=== PATIENT | female | born 1965 | race African-American/Black ===

== ENCOUNTER 2017-08-30 15:15 | Emergency (ER) | payer MEDICAID, MEDICARE, OTHER ==
[2017-08-30] MEDS ORDERED: Levofloxacin 750mg/150mL 750 MG/150 ML BAG IV ONE ×2 (17:04→17:42)
--- NOTE | 2017-08-30 17:40 | ED Physician Chart ---
ED Chief Complaint/HPI - Patient Information Date Seen:: 08/30/17 Time Seen:: 17:33 Chief Complaint:: PAIN AND SWELLING, REDNESS BOTH LEGS History of Present Illness:: THIS 52-YEAR-OLD FEMALE WAS BROUG[facility] [place] [facility]. SHE HAD HER SHOES STOLEN AND SHE HAS BEEN WALING ABOUT BAREFOOT FOR A COUPLE OF WEEKS. SHE IS NOW COMPLAINING OF SWELLING , REDNESS AND PAIN IN BOTH LEGS AND FEET. SHE IS UN COOPERATIVE IN PROVIDING ANY ADDITIONAL INFORMATION AND RESIST NURSING STAFF WHEN OBTAINING BLOOD. SHE IS UNKEPTED, BELLIGERENT AND HAS HER SOCKS GROWING INTO THE SKIN COVERING OVER HER TOES BOTH FEET. Allergies:: Allergies Allergy/AdvReac Type Severity Reaction Status Date / Time Penicillins Allergy Mild Verified 08/30/17 15:51 morphine Allergy Verified 08/30/17 15:52 Vitals:: Vital Signs - 8 hr 08/30/17 15:52 Temp 97.3 F HR 98 RR 17 BP 122/74 O2 Sat % 98 Historian:: Patient Family MD/PCP:: PT'S STORY NOT CONSISTENT OVER TIME. ED Review of Systems - Review of Systems General/Constitutional: Other ( PATIENT REFUSES TO COOPERATE WITH ROS.) Family Medical History - Family Member Mother History Unknown: Yes ED Physical Exam - Physical Examination General/Constitutional: Awake, Alert, Ambulatory Head: Atraumatic Eyes: Lids, conjuctiva normal, PERRL, EOMI Other Skin comments:: THERE IS A SYMMETRICAL DISCOLORATION OF THE SKIN IN BOTH LOWER EXTREMITIES WITH DUSKY REDNESS, WARMTH AND MILD EDEMA. THERE WAS TENDERNESS IN THE ANTERIOR TIBIAL RETION. THERE WAS POOR CALILLARY REFILL IN THE TOES. THERE WAS ALSO MILD ECONOMIC DISCOLORATION BETWEEN THE TOES ON THE RIGHT FOOT. THERE WERE NO DEFORMITIES OF ANY TOES. THE FINDINGS WERE CONSISTENT WITH STASIS DERMATITIS OR WITH CELLULITIS. ENMT: External ears, nose nl Other ENMT comments:: UNCOOPERATIVE WITH EXAMINATION. Neck: Nontender, No JVD, No mass Respiratory: Nl effort/Exclusion, Clear to Auscultation, No Wheeze/Rhonchi/Rales Cardio Vascular: No murmur, gallop, rubs, NL S1 S2 Other Cardio Vascular comments:: GOOD DORSALIS PEDIS PULSES IN BOTH LOWER EXTREMITIES. GI: No tenderness/rebounding/guarding, No hernia, Nondistended, No mass/bruits : No CVA tenderness Extremities: normal strength in all extremities Other Extremities comments:: MILD TENDERNESS TO PALPATION. IRRIGULAR ULCERATION ON PLANTAR SURFACES OF BOTH FEET. NO INACT BLISTERS. GROUND IN DIRT DISGTAL FEET BOTH FEET. Other Neuro/Psych comments:: ALERT AND UNCOOPERAIVE. MOVES ALL 4 EXTREMITIES WITH NORMAL STRENGTH. ABLE TO AMBULATE TO REST ROOM WITHOUT ASSISTANCE. Misc: Normal back ED Labs/Radiology/EKG Results - Lab Results Results: LABORATORY RESULTS: CBC SHOWS A WHITE COUNT OF 10.8 WHICH IS WITHIN NORMAL PARAMETERS. THE HEMOGLOBIN IS 12.2 WHICH IS ALSO WITHIN NORMAL PARAMETERS. THE PLATELET COUNT TO 255 WAS NORMAL. METABOLIC STUDIES SHOWED A SODIUM OF 137, POTASSIUM A 4.0, CHLORIDE OF 103, HCO3 26.1, BUN OF 17, CREATININE OF 0.5, AND GLUCOSE OF 99. RENAL FUNCTION TESTS WERE ALL WITHIN NORMAL LIMITS. LIVER FUNCTION TESTS SHOWED A SLIGHTLY ELEVATED AST OF 50, NORMAL ALT OF 51 AND A NORMAL ALKALINE PHOSPHATASE OF 88. THE LACTIC ACID WAS ZERO POINT 96 WHICH IS WELL WITHIN THE NORMAL PARAMETERS. ED Assessment - Assessment General Assessment: ALL CAPS A SUMMARY: THIS 52-YEAR-OLD FEMALE WAS BROUGHT TO THE EMERGENCY DEPARTMENT BY THE [employer] FOR MEDICAL CLEARANCE TO BOOK. SHE COMPLAINED OF PAIN IN BOTH LOWER EXTREMITIES AND ON PHYSICAL EXAMINATION SHE HAD MILD SWELLING, ERYTHEMA DISCOLORATION AND TENDERNESS TO TOUCH. A PRESUMPTIVE DIAGNOSIS OF CELLULITIS WAS MADE AND THE PATIENT WAS TREATED WITH 2 G OF IV [id number]. THE PATIENT WAS DISCHARGED IN POLICE CUSTODY WITH CLEARANCE FOR BOOKING IN A MEDICAL FACILITY WHICH CAN PROVIDE IV ANTIBIOTICS. DISCHARGED IN STABLE CONDITION. MDM DDX FOR BILATERAL REDNESS AND PAIN IN BOTH LEGS: NOT BILATERAL DVT BASED ON INFREQUENCY OF BILATERAL BLOOD CLOTS. NOT BILATERAL ARTERIAL PERFUSION BASED ON THE PATIENT'S HISTORY, AND PHYSICAL EXAMINATION. NOT NECROTIZING FASCIITIS BASED ON THE PATIENT'S HISTORY AND PHYSICAL EXAMINATION. NOT BILATERAL NEUROPATHY BASED ON PHYSICAL EXAMINATION. ED Septic Shock - . Is Septic Shock (SBP<90, OR Lactate>4 mmol\L) present?: No - <6hrs of presentation: Vital Signs: Vital Signs - 8 hr 08/30/17 15:52 Temp 97.3 F HR 98 RR 17 BP 122/74 O2 Sat % 98 ED Reassessment (Disposition) - Reassessment Reassessment Condition:: Unchanged - Diagnosis Diagnosis:: CELLULITIS BOTH LOWER EXTREMITIES - Aftercare/Follow up Instructions Aftercare/Follow-Up Instructions:: Counseled pt regarding lab results/diagnosis & need follow up - Patient Disposition Discharge/Transfer:: [facility] ED Discharge Plan - Patient Disposition Admit/Discharge/Transfer: Other Condition at Disposition: Stable Instructions: Cellulitis, [id number]
[2017-08-30 17:54] LABS: % BASOPHILS 0.6 % (0.0-2.0); % EOSINOPHILS 2.4 % (0.0-5.0); % MONOCYTES 7.4 % (2.0-10.0); % NEUTROPHILS 60.6 % (40.0-80.0); BASOPHILE ABSOLUTE 0.1 Th/cumm (0-0.2); EOSINOPHILE ABSOLUTE 0.3 Th/cmm (0.1-0.4); HEMOGLOBIN 12.2 gm/dL (12-16); LYMPHOCYTE ABSOLUTE 3.1 Th/cmm (1.5-3.0); MEAN CELL VOLUME 98.4 fl (81-100); MEAN CORPUSCULAR HEMOGLOBIN 32.5 pg (27.0-31.0); MEAN PLATELET VOLUME 9.1 fl; MONOCYTE ABSOLUTE 0.8 Th/cmm (0.3-1.0); NEUTROPHILE ABSOLUTE 6.5 Th/cmm (1.8-8.0); PLATELET COUNT 255 Th/cmm (150-400); RED BLOOD COUNT 3.76 Mil/cmm (3.80-5.10); RED CELL DISTRIBUTION WIDTH 11.2 % (11.5-20.0); WHITE BLOOD COUNT 10.8 Th/cmm (4.8-10.8)
[2017-08-30 18:05] LABS: ALKALINE PHOSPHATASE 88 U/L (34-104); ANION GAP 11.9 (7.0-16.0); BILIRUBIN,TOTAL 0.4 mg/dL (0.3-1.0); BUN - UREA NITROGEN 17 mg/dL (7-25); CALCIUM SERUM 9.8 mg/dL (8.6-10.3); CARBON DIOXIDE 26.1 mEq/L (21.0-31.0); CHLORIDE 103 mEq/L (98-107); CREATININE - SERUM 0.5 mg/dL (0.6-1.2); GFR AFRICAN-AMERICAN > 60.0 ml/min (>90); GFR NON AFRICAN-AMERICAN > 60.0 ml/min; GLUCOSE 99 mg/dL (70-105); SGOT 50 U/L (13-39); SGPT/ALT 51 U/L (7-52); SODIUM SERUM 137 mEq/L (136-145); TOTAL PROTEIN,SERUM 7.9 gm/dL (6.0-8.3)
== END 2017-08-30 20:30 | disposition still patient (30) ==
LOC: ER 15:15
DX: L03.116 Cellulitis of left lower limb (principal); L03.115 Cellulitis of right lower limb
CPT/HCPCS: 99284; 36415; 83605; 85025; 80053; 87040 ×2; J1956; Z7502